=== PATIENT | male | born 2000 | race Two or more races ===

== ENCOUNTER 2024-08-29 22:36 | Emergency (ER) | payer MEDICAID, SELFPAY ==
[2024-08-29 23:12] VITALS: BP 138/68; PULSE 65; RESP 18; TEMP 36.6; O2SAT 99; BMI 25.1
--- NOTE | 2024-08-29 23:26 | ED_ITS ---
HPI - General Adult General Chief complaint: General Medical Stated complaint: called for a drug test to be done Time Seen by Provider: 08/29/24 23:26 Source: patient Mode of arrival: ambulatory Limitations: language barrier ( Belarusian speaking, medical assistant supervisor utilized) History of Present Illness ED Provider: Janice Charlton NP HPI narrative: patient is a 24-year-old male who presents emergency department requesting drug testing. Notes drug testing to check for marijuana. He denies recent usage. He denies additional recreational drug usage. Related Data Allergies Allergy/AdvReac Type Severity Reaction Status Date / Time No Known Allergies Allergy Verified 08/29/24 23:14 Review of Systems Review of Systems: Yes all other systems are reviewed and are negative PMFSH Past Medical History Attestation statement: The following information was validated with the patient. Source: old records reviewed Physical Exam ED Vital Signs: Vital Signs - 24 hr 08/29/24 23:12 08/30/24 00:37 Temperature 97.9 F 97.1 F Pulse Rate 65 77 Respiratory Rate 18 17 Blood Pressure 138/68 157/75 H Pulse Oximetry 99 100 Oxygen Delivery Method Room Air Room Air BMI result Body Mass Index 25.1 Appearance: Alert.?Oriented to person, place and time. No acute dist ress.?Normal affect. Eyes: Pupils equal, round and reactive to light.? CVS: Heart sounds normal. Normal heart rate and rhythm.? Pulses normal.?? Respiratory: No respiratory distress.? Lung sounds clear to auscultation bilaterally? Skin: Skin warm and dry.? Normal skin color.? Neuro: Moves all extremities spontaneously. Ambulates with normal steady gait. Medical Decision Making Medical Decision Making [facility] Narrative: Patient is a 24-year-old male presents emergency department requesting drug testing for marijuana as per HPI. He denies any recent Marijuana usage. Denies additional recreational drug usage. Offers no physical complaints in his physical examination is benign. Differential Diagnosis Differential Diagnoses: The differential diagnosis associated with the presentation includes ( marijuana use, urine toxicology screening) Lab Data [facility] Lab Attestation statement: I reviewed the patient's lab results. toxicology positive for marijuana, Labs: Lab Results 08/29/24 Range/Units 23:32 Urine Opiates Screen Not Detected (Not Detect) Ur Buprenorphine Scrn Not Detected (Not Detect) ng/mL Ur Oxycodone Screen Not Detected (Not Detect) ng/mL Urine Methadone Screen Not Detected (Not Detect) ng/mL Urine Fentanyl Screen Not Detected (Not Detect) Ur Barbiturates Screen Not Detected (Not Detect) Ur Phencyclidine Scrn Not Detected (Not Detect) Ur Amphetamines Screen Not Detected (Not Detect) U Benzodiazepines Scrn Not Detected (Not Detect) Urine Cocaine Screen Not Detected (Not Detect) U Marijuana (THC) Screen POSITIVE H (Not Detect) External Record Review External record reviewed: Outpatient record Discharge Plan Discharge Clinical Impression: Marijuana use Patient Disposition: Home, Self-Care Additional Instructions: your marijuana test was positive today, you were tested at your own request. Referrals: Physician,None [Primary Care Provider] - Print Language: Belarusian
[2024-08-29 23:51] LABS: Fentanyl, urine Not Detected (Not Detect)
[2024-08-29 23:52] LABS: Amphetamine Screen Urine Not Detected (Not Detect); Barbiturates, Urine Not Detected (Not Detect); Benzodiazepines Screen Urine Not Detected (Not Detect); Buprenorphine Scr Not Detected (Not Detect); Cannabinoid Screen Urine POSITIVE (Not Detect); Cocaine Screen Urine Not Detected (Not Detect); Methadone Screen, Urine Not Detected (Not Detect); Opiate Screen Urine Not Detected (Not Detect); Oxycodone Screen Urine Not Detected (Not Detect); Phencyclidine Screen Urine Not Detected (Not Detect)
[2024-08-30 00:37] VITALS: BP 157/75; PULSE 77; RESP 17; TEMP 36.2; O2SAT 100
== END 2024-08-30 01:15 | disposition home or self-care (01) ==
PROVIDERS: Nurse Practitioner Family; Emergency Provider Emergency Medicine Emergency Medical Services
DX: F12.90 Cannabis use, unspecified, uncomplicated (principal); Z51.81 Encounter for therapeutic drug level monitoring
CPT/HCPCS: 80307; 99282

== ENCOUNTER 2024-10-26 07:21 | Emergency (ER) | payer MEDICAID, SELFPAY ==
--- NOTE | 2024-10-26 | ECG_ITS ---
Test Reason : chest pain Blood Pressure : */* mmHG Vent. Rate : 93 BPM Atrial Rate : 93 BPM P-R Int : 126 ms QRS Dur : 92 ms QT Int : 332 ms P-R-T Axes : 45 78 33 degrees QTcB Int : 412 ms Normal sinus rhythm Normal ECG No previous ECGs available Referred By: Generic ED Physician Electronically Signed By: Filiberto Wolfe
--- NOTE | ~2024-10-26 | XR_ITS ---
EXAMINATION: XR CHEST CLINICAL INFORMATION: cough COMPARISON: None available. TECHNIQUE: 2 views of the chest were obtained. FINDINGS: No consolidation, pleural effusion or pneumothorax. Cardiomediastinal silhouette size is normal. Osseous structures are intact. XR/XR chest 2V IMPRESSION: Normal chest x-ray. Electronically signed by: Taras Alexandra MD 10/26/2024 08:26 AM EDT RP
[2024-10-26 07:32] VITALS: BP 125/59; PULSE 97; RESP 18; TEMP 37.1; O2SAT 99; BMI 25.2
--- NOTE | 2024-10-26 07:38 | PC.NURSE ---
pt reports that yesterday he started not feeling well -sore throat, fatigue, cough and CP with cough. Bought some medication to help but he reports it is not helping
--- NOTE | 2024-10-26 07:59 | ED_ITS ---
HPI - Chest Pain General Chief Complaint: Chest Pain Stated Complaint: Cough, chest pain Time Seen by Provider: 10/26/24 07:48 Source: patient Mode of arrival: ambulatory Limitations: no limitations History of Present Illness HPI narrative: This is a 24 years old the patient presented to emergency department complaining of cough congestion chest pain with cough also complaining of sore throat generalized body aches since yesterday complaint: chest pain Onset (ago): day(s) (1) Timing of current episode: episodic Onset: other (cough) Pain location: left chest Pain radiation: none Severity: mild Relieving factors: nothing Exacerbating factors: other (cough) Risk Factors Coronary artery disease risk factors: none Related Data Previous Rx's ?Medication ?Instructions ?Recorded benzonatate 100 mg capsule 100 mg PO TID PRN cough #14 caps 10/26/24 ibuprofen 800 mg tablet 800 mg PO TID PRN pain #20 tabs 10/26/24 Allergies Allergy/AdvReac Type Severity Reaction Status Date / Time No Known Allergies Allergy Verified 10/26/24 07:33 Review of Systems Constitutional: Constitutional: Reports no additional constitutional complaints ENT: Reports system reviewed and no additional complaints, except as documented Respiratory: Respiratory: Reports cough PMFSH Past Medical History PMFSH Narrative: Denies any major medical problems Social History Social History Advance Directives: No Advance Directives Information Provided: Yes Do you have a plan to hurt others: No Plan Physical Exam Vital Signs: Vital Signs: Last Vital Signs Temp 98.7 F 10/26/24 07:32 Pulse 97 10/26/24 07:32 Resp 18 10/26/24 07:32 BP 125/59 L 10/26/24 07:32 Pulse Ox 99 10/26/24 07:32 O2 Del Method Room Air 10/26/24 07:32 BMI result Body Mass Index 25.2 No acute distress looks well comfortable in the stretcher Const: General: cooperative Nutritional Appearance: well nourished Orientation/consciousness: patient oriented x3 Limitations: no limitations HEENT: Head: Yes normal to inspection Mouth: Normal oral and palatal mucosa present Throat: Yes other (Redness of the pharynx no exudations seen) Neck: Neck: Yes normal visual inspection Chest: Chest palpation & inspection: normal inspection of the chest Resp: Effort & Inspection: normal respiratory effort Auscultation: rhonchi Cardio: Jugular venous distension: no JVD Rate: regular rate Rhythm: regular rhythm GI: Inspection: Yes normal to inspection Palpation (GI): Soft to palpation, not firm and nontender Percussion: Yes normal to percussion Skin: General skin exam: no rashes or lesions noted and elasticity normal Lesions: no lesions Rashes: no rashes Neuro: General: patient oriented x3 Extrem: General: Yes normal to inspection and Yes full ROM Right upper extremity: normal to inspection Course Reevaluation(s) Reevaluation #1: Patient is feeling better chest x-ray negative viral panel negative anticipate discharge Time: 09:35 Medications Administered Discontinued Medications Generic Name Dose Route Start Last Admin Trade Name Freq PRN Reason Stop Dose Admin Ibuprofen 800 mg 10/26/24 07:58 10/26/24 08:31 Ibuprofen 800 Mg Tablet PO 10/26/24 07:59 800 mg ONCE ONE Administration Medical Decision Making Medical Decision Making [facility] Narrative: Patient is here with cough congestion sore throat chest pain with cough we will obtain EKG chest x-ray viral panel Differential Diagnosis Differential Diagnoses: The differential diagnosis associated with the presentation includes Bronchitis/pneumonia/COVID/flu Admission/Observation Consideration of admission/observation: Escalation of care including admission/observation considered Lab Data [facility] Lab Attestation statement: I reviewed the patient's lab results. Labs: Lab Results 10/26/24 Range/Units 08:09 Influenza Type A (PCR) NEGATIVE (Negative) Influenza Type B (PCR) NEGATIVE (Negative) RSV RNA Qual (PCR) NEGATIVE (Negative) SARS-CoV-2 RNA (RT-PCR) NEGATIVE (Negative) S. pyogenes GrpA CAT Negative (Negative) Independent Interpretation I performed an independent interpretation of an: EKG Interpretation: Normal sinus rhythm rate [address]-T changes this is a normal EKG Radiology Impression Discussion of test interpretation with radiology: I have reviewed the radiologist's reading. Independent Historian Clinical information obtained from an independent historian. History obtained from or confirmed by: Spouse Discharge Plan Discharge Clinical Impression: URI (upper respiratory infection) Qualifiers: URI type: unspecified viral URI Qualified Code(s): J06.9 - Acute upper respiratory infection, unspecified Patient Disposition: Home, Self-Care Instructions: Upper Respiratory Infection (ED) Additional Instructions: Follow-up with your primary care physician take Motrin every 8 hour as needed for pain and fever and Tessalon for cough Prescriptions: New ibuprofen 800 mg tablet 800 mg PO TID PRN (Reason: pain) Qty: 20 0RF benzonatate 100 mg capsule 100 mg PO TID PRN (Reason: cough) Qty: 14 0RF Print Language: Sinhala
--- OUTSIDE RECORDS SUMMARY | 2024-10-26 08:12 | XMS_ITS | Clinical Summary ---
Author Organization [facility] Address [address] [place] [address] Care Team Providers Care Vice President Digital Strategist Name Role Phone Unavailable Primary Care Provider Unavailabl e Source Comments PLEASE NOTE, if this patient is a minor, it may be UNLAWFUL to discuss sensitive information that is contained in these records (such as FAMILY PLANNING, MENTAL HEALTH or SUBSTANCE ABUSE) with the minor patient's parent or other person without the patient's specific authorization.[facility] Allergies No known active allergies Medications ibuprofen 800 mg tabletIndication s:Encounter for dental examination take 1 tablet by oral route 3 times every day with food 15 Tablet 4 Active fluoride, sodium, 1.1 % creaIndications: Encounter for dental examination Sharon teeth with gel three times a day, Expectorate afterwards, do not rinse. 100 g 3 4 Active Active Problems No known active problems Social History Tobacco Use Types Packs/Day Years Used Date Smoking Tobacco: Never Smokeless Tobacco: Never Tobacco Cessation:Counseling Given: No Social Connections Answer Date Recorded Connectedness 0 04/27/2024 Financial Resource Strain Answer Date R ecorded Financial Resource Strain 0 2023 Stress Answer Date Recorded Stress 0 04/27/2024 Physical Activity Answer Date Recorded Physical Activity 0 04/27/2024 Food Insecurity Answer Date Recorded Food 0 04/27/2024 Transportation Needs Answer Date Record ed Transportation 0 04/27/2024 Housing Stability Answer Date Recorded Housing 0 04/27/2024 Safety and Environment Answer Date Farzad rded Safety 0 04/27/2024 Utilities Answer Date Recorded Utilities 0 04/27/2024 Employment Answer Date Recorded Stress 0 04/27/2024 Sex and Gender Information Value Date Recorded Sex Assigned at Male 01/23/2021 8:15 AM PDT Legal Sex Male 6:22 AM PDT Gender Identity Male 01/23/2021 8:15 AM PDT Sexual Orientation Choose not to disclose 2020 8:15 AM PDT Last Filed Vital Signs Vital Sign Reading Time Taken Comments Blood Pressure 119/73 05/20/2024 3:11 PM EST Pulse 78 05/20/2024 3:11 PM EST Temperature 37 ??C (98.6 ??F) 01/23/2021 11:15 AM EDT Respiratory Rate - - Oxygen Saturation - - Inhaled Oxygen Concentration - - Weight - - Height - - Body Mass Index - - Plan of Treatment Health Maintenance Due Date Last Done Comments Anxiety Screening 1999 Dental Perio Charting 1999 Hepatitis C Screening 1999 Imm-Varicella (1 of 2 - 13+ 2-dose series) 2012 HIV Screening 2014 Imm-HPV (1 - Male 3-dose series) 2014 Imm-DTaP/Tdap/Td (1 - Tdap) 2018 Imm-Hepatitis B (1 of 3 - 19+ 3-dose series) [id number] ( season) 2024 Imm-Influenza (#1) 2024 Alcohol and Drug Screen 06/29/2024 Depression Annual Screen 06/29/2024 Dental Examination 10/28/2024 04/28/2024 Dental Prophy 10/28/2024 04/28/2024 Dental BW 04/30/2025 04/28/2024 Tobacco Screening 07/01/2025 07/01/2024 Hypertension Screening (#1) 05/20/2027 Dental FMX/Pano 04/30/2029 04/28/2024 Procedures Procedure Name Priority Date/Time Associated Diagnosis Comments INTRAORAL - COMP SERIES OF RADIOGRAPHIC IMAGES Routine 04/28/2024 5:30 PM EDT Encounter for dental examination PROPHYLAXIS - ADULT Routine 04/28/2024 5 :30 PM EDT Encounter for dental examination COMP ORAL EVALUATION - NEW/ESTABLISHED PATIENT Routine 04/28/2024 5:30 PM EDT Encounter for dental examination from Last 3 Months or Most Recently Relevant to Health Maintenance Insurance [employer]
--- OUTSIDE RECORDS SUMMARY | 2024-10-26 08:12 | XMS_ITS | Clinical Summary ---
Author Organization [employer] Address [address] [place] [address] Care Team Providers Care Precinct I Police Sergeant Name Role Phone Unavailable Primary Care Provider Unavailabl e Encounters Date Type Department Care Team Description 09/28/2024 Population Health Risk Score Community Care [facility] ([facility] Department [address] [place] [id number] Provider, Population Health Generic from Last 3 Months Social History Tobacco Use Types Packs/Day Years Used Date Smoking Tobacco: Never Assessed Sex and Gender Information Value Date Recorded Sex Assigned at Not on file Legal Sex Male 2:13 AM EDT Gender Identity Not on file Sexual Orientation Not on file Plan of Treatment Health Maintenance Due Date Last Done Comments Depression Screening 1999 HIV Screening 1999 SDOH Screening 1999 Alcohol/Substance Use Screening 2011 Tobacco Screening 2011 Family Planning (PISQ) 2014 HPV Vaccines (1 - Male 3-dos e series) 2014 Hepatitis C Screening 2017 DTaP/Tdap/Td Vaccines (1 - Tdap) 2018 Hepatitis B Vaccines (1 of 3 - 19+ 3-dose series) 2018 COVID-19 Vaccine (1 - 2023-2 5 season) 2024 Influenza Vaccine (#1) 2024 Zoster Vaccines (1 of 2) 2049 RSV Patients and Pa tients Aged 60 years or older (1 - 1-dose 75+ series) 2074 HIB Vaccines Aged Out No longer eligi ble based on patient's age to complete this topic Hepatitis A Vaccines Aged Out No long er eligible based on patient's age to complete this topic IPV Vaccines Aged Out No longer eligi ble based on patient's age to complete this topic Meningococcal Vaccine Aged Out No marcus tello eligible based on patient's age to complete this topic Pneumococcal Vaccine: Pediat rics (0 to 5 Years) and At-Risk Patients (6 to 49) Years) Aged Out No longer eligible b ased on patient's age to complete this topic RSV under 20 months Aged Out No longe r eligible based on patient's age to complete this topic Rotavirus Vaccines Aged Out No longer eligible based on patient's age to complete this topic
[2024-10-26] MEDS: Ibuprofen 800 MG TABLET PO (08:31)
[2024-10-26 09:09] LABS: Influenza A PCR NEGATIVE (Negative); Influenza B PCR NEGATIVE (Negative); Resp Syncy Virus RNA Qual PCR NEGATIVE (Negative); SARS COV2 PCR INHOUSE NEGATIVE (Negative)
[2024-10-26 09:12] LABS: IDNOW Serial# 58CA691E; Strep A Nucleic Acid Negative (Negative)
[2024-10-26 09:47] VITALS: BP 125/59; PULSE 97; RESP 18; TEMP 37.1; O2SAT 99
== END 2024-10-26 09:47 | disposition home or self-care (01) ==
PROVIDERS: Emergency Provider Emergency Medicine
DX: J06.9 Acute upper respiratory infection, unspecified (principal); J02.9 Acute pharyngitis, unspecified; Z03.818 Encounter for observation for suspected exposure to other biological agents ruled out; R07.9 Chest pain, unspecified; R05.9 Cough, unspecified
CPT/HCPCS: 0241U; 71046; 87651; 93005; 99283

== ENCOUNTER → 2024-10-26 07:25 | Outpatient (BNV) | payer MEDICAID, SELFPAY | PROVIDERS: Emergency Provider Emergency Medicine; Visit Provider Internal Medicine Cardiovascular Disease | DX: R07.9 Chest pain, unspecified (principal) | CPT/HCPCS: 93010 ==

== ENCOUNTER → 2024-10-26 07:58 | Outpatient (BNV) | payer MEDICAID, SELFPAY | PROVIDERS: Emergency Provider Emergency Medicine; Visit Provider Radiology Diagnostic Radiology | DX: R05.9 Cough, unspecified (principal) | CPT/HCPCS: 71046 ==

== ENCOUNTER 2024-11-12 19:56 | Emergency (ER) | payer MEDICAID, SELFPAY ==
--- NOTE | 2024-11-12 20:09 | ED_ITS ---
HPI - General Adult General Chief complaint: Medical Clearance Stated complaint: Medical Clearance Time Seen by Provider: 11/12/24 20:14 Source: patient and membership secretary Mode of arrival: ambulatory Limitations: language barrier History of Present Illness ED Provider: Giovanna Andres APRN HPI narrative: Patient presents seeking a drug screening test for his job. 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 He was informed by the job that he also needs a drug screen as part of the application process. He has no complaints. Related Data Previous Rx's ?Medication ?Instructions ?Recorded benzonatate 100 mg capsule 100 mg PO TID PRN cough #14 caps 10/26/24 ibuprofen 800 mg tablet 800 mg PO TID PRN pain #20 tabs 10/26/24 Allergies Allergy/AdvReac Type Severity Reaction Status Date / Time No Known Allergies Allergy Verified 11/12/24 20:12 Review of Systems Review of Systems: Yes all other systems are reviewed and are negative PMFSH Past Medical History Attestation statement: The following information was validated with the patient. Source: old records reviewed and nursing notes reviewed Social History Social History Advance Directives: No Advance Directives Information Provided: No Physical Exam ED Vital Signs: Vital Signs - 24 hr 11/12/24 20:10 11/12/24 20:25 Temperature 98.1 F 98.1 F Pulse Rate 73 73 Respiratory Rate 16 16 Blood Pressure 135/65 135/65 Pulse Oximetry 100 100 Oxygen Delivery Method Room Air Room Air BMI result Body Mass Index 23.0 Const General: cooperative, healthy appearing, comfortable and no acute distress Orientation/consciousness: patient oriented x3 Limitations: no limitations HENMT Head: Yes normal to inspection Eyes General: appearance normal, both eyes and all related structures Resp Effort & Inspection: normal respiratory effort Neuro General: patient oriented x3 and moves all extremities Cognition (Neuro): normal cognition Gait exam (Neuro): Normal gait present Extrem General: Yes normal to inspection Course Course Course Narrative: Arvin PURI 11/12 2009 This is a rapid medical exam. Deferred additional HPI, ROS, PE to primary provider. Medical Decision Making Medical Decision Making [facility] Narrative: Patient presents seeking a drug screening test for his job. 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 He was informed by the job that he also needs a drug screen as part of the application process. He has no complaints. I explained to him we do not provided drug screening for routine employment. He has a DOT appointment tomorrow and can ask for a drug screen at that time. Differential Diagnosis Differential Diagnoses: The differential diagnosis associated with the presentation includes Discharge Plan Discharge Clinical Impression: Normal exam Patient Disposition: Home, Self-Care Instructions: Normal Exam (ED) Additional Instructions: Ask for an order for a drug screen tomorrow when you are having your DOT physical Prescriptions: No Action ibuprofen 800 mg tablet 800 mg PO TID PRN (Reason: pain) Qty: 20 0RF benzonatate 100 mg capsule 100 mg PO TID PRN (Reason: cough) Qty: 14 0RF Referrals: Physician,Unknown J [Primary Care Provider] - 1 week Interventions: ED Discharge Assessment Last Done: 11/12/24 20:25 Discharge Date/Time: 11/12/24 20:25 Print Language: Sinhala
[2024-11-12 20:10] VITALS: BP 135/65; PULSE 73; RESP 16; TEMP 36.7; O2SAT 100; BMI 23.0
[2024-11-12 20:25] VITALS: BP 135/65; PULSE 73; RESP 16; TEMP 36.7; O2SAT 100
== END 2024-11-12 20:25 | disposition home or self-care (01) ==
PROVIDERS: Emergency Provider Emergency Medicine
DX: Z02.1 Encounter for pre-employment examination (principal)
CPT/HCPCS: 99282